=== PATIENT | female | born 1940 | race Caucasian/White ===

== ENCOUNTER 2023-08-05 07:17 | Emergency (ER) | payer MEDICARE, SELFPAY ==
[2023-08-05] VITALS (14 sets, daily range): BP systolic 131–187; BP diastolic 65–99; PULSE 68–95; RESP 17; TEMP 36.5; O2SAT 94–97; BMI 23.6
--- NOTE | 2023-08-05 07:46 | ECG_ITS ---
[facility] Test Date: 2023-08-05 Pat Name: Diana Shock Department: Room: Gender: Female Content Management Specialist: : [id number] Requested By: Dixon Díaz Order Number: [id number] Sarah MD: Joey Blount M.D. Measurements Intervals [place] Rate: 69 P: 18 MA: 201 QRS: -22 QRSD: 96 T: 19 QT: 402 QTc: 431 Interpretive Statements SINUS RHYTHM VOLTAGE CRITERIA FOR LVH [MEETS CRITERIA IN ONE OF: R(aVL), S(V1), R(V5), R(V5/V6)+S(V1)] POSSIBLE ANTEROSEPTAL MYOCARDIAL INFARCTION , OF INDETERMINATE AGE [30 ms Q WAVE IN V1-V4] No previous ECG available for comparison Electronically Signed On 08-05-2023 11:47:11 CDT by Joey Blount M.D. [id number]
[2023-08-05] MEDS: hyDRALAzine 20 mg/mL INJ 1 mL 10 MG IVP (07:50)
[2023-08-05] MEDS: labetalol 5 mg/mL SDV 20mL 10 MG IVP (07:52)
--- NOTE | 2023-08-05 07:58 | ED_ITS ---
HPI - Headache 2 General: Chief Complaint: Headache Stated Complaint: HTN Time Seen by Provider: 08/05/23 07:21 Source: patient Mode of arrival: ambulatory History of Present Illness: 83-year-old female presents emergency ro om complaining of elevated blood pressure at home with a headache. Her blood pressure at home was 212/112 she has severe headache vomited once. She had gotten up early this morning to use the restroom around midnight and nearly fell kind of lowered herself to the floor using a rail next to the toilet she was able to get herself back up and went to bed she felt [place] she woke up at 5 AM with a headache and elevated blood pressure EMS was called and applied nitro and gave her Zofran. She had not had any chest pain in the course of this. She did try to take at 325 aspirin shortly after she took that she vomited the single time. After arrival here first blood pressure was 185 on the nitro she was given hydralazine and labetalol blood pressure improved significantly to the 130s her headache resolved nitro was removed. She denies any abdominal pain any recent fever sweats or chills no change in any of her medications recently she is not on any anticoagulants no head trauma. No difficulty speech swallowing or vision MD elicited complaint: headache Onset (ago): hour(s) Location: frontal Exacerbating factors: none Relieving factors: nothing Associated symptoms: Reports lightheadedness; Deny chest pain, confusion, cough, diaphoresis, eye pain, eye redness, fever(s), loss of vision, malaise, nausea, neck stiffness, numbness, paresthesias, photophobia, pre-syncope, rash, seizures, short of breath, sound sensitivity, syncope, vomiting or weakness Review of Systems 2 Const: Denies: fever(s), chills, malaise or diaphoresis Card: Reports: lightheadedness; Denies: chest pain, syncope or pre-syncope Resp: Denies: dyspnea GI: Denies: abdominal pain, nausea or vomiting : Denies: dysuria, urinary frequency or urinary urgency Musc: Denies: neck pain or back pain Skin/Breast: Denies: rash Neuro: Reports: headache(s); Denies: confusion Physical Exam 2 Const: GENERAL APPEARANCE: cooperative and comfortable O RIENTATION/CONSCIOUSNESS: Yes awake, Yes oriented to person, Yes oriented to place and Yes oriented to time HENMT: COMMON NORMALS: normocephalic, atraumatic and hearing grossly normal bilaterally HEAD & SCALP: normocephalic and atraumatic Eye: DIRECT OPHTHALMOSCOPY: No photophobia Resp: COMMON NORMALS: normal respiratory effort, No retractions, No use of accessory muscles and clear to auscultation bilaterally AUSCULTATION: clear to auscultation bilaterally Cardio: COMMON NORMALS: regular rate, regular rhythm and No murmurs present (Cardio) RATE: regular rate RHYTHM: regular rhythm GI: COMMON NORMALS: Soft to palpation and No hepatosplenomegaly present A USCULTATION: Yes normoactive bowel sounds PALPATION: Yes Soft to palpation, No Tenderness to palpation present (GI), No Guarding due to palpation present (GI) and Yes No hepatosplenomegaly present Extremity: COMMON NORMALS: normal to inspection, capillary refill normal, no clubbing, cyanosis or edema, no calf tenderness and no pedal edema Neuro: SENSORIUM/ORIENTATION: Yes oriented to person, Yes oriented to place and Yes oriented to time Skin: COMMON NORMALS: no rashes or lesions noted GENERAL SKIN EXAM: no rashes or lesions noted Course 2 Vital Signs: Vital signs: Vital Signs Temperature 97.7 F 08/05/23 11:42 Pulse Rate 73 08/05/23 11:42 Respiratory Rate 17 08/05/23 11:42 Blood Pressure 146/75 08/05/23 11:42 Pulse Oximetry 96 08/05/23 11:42 Oxygen Delivery Me thod Room Air 08/05/23 10:30 MDM - Headache Medical Decision Making Patient arrived emergency room after nearly falling this morning she sent to the [facility] for show back to bed which she arrived here she complaining of headache and high blood pressure. Blood pressure responded well to the medications. She is feeling much better headache resolved we will have her stop the combination amlodipine benazepril changed to 5 mg daily and amlodipine 10 mg daily benazepril recheck with her primary care doctor within a week. Medical Records I reviewed the patient's medical records. Lab Data I reviewed the patient's lab results. 08/05/23 07:59 08/05/23 07:59 Laboratory Results WBC 9.33 10^3/uL (3.29-11.43) 08/05/23 07:59 RBC 4.05 10^6/uL (3.85-5.65) 08/05/23 07:59 Hgb 11.70 g/dL (11.27-16.99) 08/05/23 07:59 Hct 35.7 % (36-47) L 08/05/23 07:59 MCV 88.1 fl (85-98) 08/05/23 07:59 MCH 28.9 pg (27-33) 08/05/23 07:59 MCHC 32.8 g/dL (30-55) 08/05/23 07:59 RDW 14.3 % (12.1-15.1) 08/05/23 07:59 Plt Count 211 10^3/cmm (157-399) 08/05/23 07:59 MPV 9.5 fL (7.4-10.4) 08/05/23 07:59 Neut % (Auto) 75.5 % 08/05/23 07:59 Lymph % (Auto) 13.3 % 08/05/23 07:59 [place] % (Auto) 8.0 % 08/05/23 07:59 Eos % (Auto) 2.0 % 08/05/23 07:59 Baso % (Auto) 0.8 % 08/05/23 07:59 Neut # (Auto) 7.04 10^3/uL (1.8-7.7) 08/05/23 07:59 Lymph # (Auto) 1.2 10^3/uL (0.8-4.8) 08/05/23 07:59 [place] # (Auto) 0.8 10^3/uL (0.2-0.9) 08/05/23 07:59 Eos # (Auto) 0.2 10^3/uL (0.0-0.8) 08/05/23 07:59 Baso # (Auto) 0.1 10^3/uL (0.0-0.1) 08/05/23 07:59 Nucleated RBC % (auto) 0 % 08/05/23 07:59 Nucleated RBCs # 0.0 /100WBC 08/05/23 07:59 Sodium 140 mmol/L (136-145) 08/05/23 07:59 Potassium 4.1 mmol/L (3.5-5.1) 08/05/23 07:59 Chloride 106 mmol/L (98-107) 08/05/23 07:59 Carbon Dioxide 23 mmol/L (22-29) 08/05/23 07:59 Anion Gap 15.1 (5-19) 08/05/23 07:59 BUN 24 mg/dL (8-23) H 08/05/23 07:59 Creatinine 1.0 mg/dL (0.5-0.9) H 08/05/23 07:59 GFR Calculation Not Reportable 08/05/23 07:59 Glucose 116 mg/dL (65-115) H 08/05/23 07:59 Calculated Osmolality 295 mOsm/kg (285-295) 08/05/23 07:59 Calcium 9.4 mg/dL (8.5-10.5) 08/05/23 07:59 Total Bilirubin 0.2 mg/dL (0.15-1.2) 08/05/23 07:59 AST 15 U/L (0-32) 08/05/23 07:59 ALT 10 U/L (0-33) 08/05/23 07:59 Alkaline Phosphatase 51 U/L (35-105) 08/05/23 07:59 Total Protein 7.3 g/dL (6.6-8.7) 08/05/23 07:59 Albumin 4.1 g/dL (3.5-5.2) 08/05/23 07:59 Globulin 3.2 g/dL (1.3-4.6) 08/05/23 07:59 No radiology studies performed this visit Discharge Plan Discharge Patient Disposition: Home Clinical Impression: HTN (hypertension), Headache Condition: Stable Prescriptions: New benazepril 10 mg tablet 10 mg PO DAILY Qty: 30 0RF amlodipine 5 mg tablet 5 mg PO DAILY Qty: 30 0RF Discontinued amlodipine-benazepril 2.5-10 mg capsule 1 cap PO DAILY No Action Fish Oil Concentrate 1,000 mg Capsule 1,000 mg PO BID aspirin 325 mg Tablet 325 mg PO .ONE TIME DOSE Calcium 600 600 mg calcium (1,500 mg) Tablet 600 mg PO BID omeprazole 20 mg capsule,delayed release(DR/EC) 20 mg PO BID pravastatin 20 mg tablet 20 mg PO DAILY Prolia 60 mg/mL Syringe See Rx Instructions .ROUTE .COMPLEX Rx Instructions: subcutaneously every 6 months as directed PreserVision AREDS-2 250-90-40-1 mg Capsule 1 cap PO DAILY Glucosamine Chondroitin 550-30-1 mg Capsule 1 cap PO BID Prevagen 1 tab PO DAILY Vitamin D3 + B-12 1 tab PO DAILY Discharge Orders: Discharge ED (Routine); Ordered 08/05/23 Ordered By: Dixon Fonseca Discharge Diet: Usual diet Discharge Activity: Increase activity as tolerated Patient Instructions: Opioid Safety, Pain Management Activity Restrictions/Additional Instructions: Thank you for choosing [facility] for your healthcare needs today. Please realize this is an emergency room and that we are providing you with a medical screening exam and this may not be complete and all inclusive of all the testing and or work up that you may need to determine your ailment or severity of your illness. It is very important that you follow up as instructed or that you return to the Emergency Department should you have concerns or if your condition changes or worsens in any way. You are seen today for elevated blood pressure with a headache resolved as your blood pressure improved. Recommend you stop the amlodipine benazepril combination changed to amlodipine 5 mg daily and benazepril 10 mg daily and recheck Coding Level of Care Code ED Analytical Chemist for Melva Coombs
[2023-08-05 08:06] LABS: Basophils # 0.1 10^3/uL (0.0-0.1); Basophils % 0.8 %; Eosinophils # 0.2 10^3/uL (0.0-0.8); Hematocrit 35.7 % (36-47); Lymphocytes # 1.2 10^3/uL (0.8-4.8); Lymphocytes % 13.3 %; Mean Corpuscular HGB Conc 32.8 g/dL (30-55); Mean Corpuscular Hemoglobin 28.9 pg (27-33); Mean Corpuscular Volume 88.1 fl (85-98); Mean Platelet Volume 9.5 fL (7.4-10.4); Monocytes # 0.8 10^3/uL (0.2-0.9); Neutrophils # 7.04 10^3/uL (1.8-7.7); Neutrophils % 75.5 %; Nucleated Red Blood Cells % 0 %; Platelet Count 211 10^3/cmm (157-399); Red Blood Count 4.05 10^6/uL (3.85-5.65); Red Cell Distribution Width 14.3 % (12.1-15.1); White Blood Count 9.33 10^3/uL (3.29-11.43)
[2023-08-05 08:25] LABS: Alanine Aminotransferase 10 U/L (0-33); Albumin Level 4.1 g/dL (3.5-5.2); Alkaline Phosphatase 51 U/L (35-105); Anion Gap 15.1 (5-19); Aspartate Amino Transferase 15 U/L (0-32); Blood Urea Nitrogen 24 mg/dL (8-23); Calcium 9.4 mg/dL (8.5-10.5); Carbon Dioxide 23 mmol/L (22-29); Chloride 106 mmol/L (98-107); Creatinine Clr Calc Pharmacy 43.1547; Globulin 3.2 g/dL (1.3-4.6); Glucose 116 mg/dL (65-115); Osmolality Calculated 295 mOsm/kg (285-295); Potassium 4.1 mmol/L (3.5-5.1); Sodium 140 mmol/L (136-145); Total Bilirubin 0.2 mg/dL (0.15-1.2); Total Protein 7.3 g/dL (6.6-8.7)
--- NOTE | 2023-08-05 09:13 | PC.PHAR ---
pt brought in med list-pt and pts daughter verified pts medications-pt states she took a one time dose of aspirin 325mg today but states then she threw it up-
== END 2023-08-05 11:44 | disposition home or self-care (01) ==
PROVIDERS: Emergency Provider Family Medicine
DX: I10 Essential (primary) hypertension (principal); R51.9 Headache, unspecified
CPT/HCPCS: 36415; 80053; 85025; 93005; 96374; 96375; 99284; J0360; J3490